=== PATIENT | female | born 1950 | race Caucasian/White ===

== ENCOUNTER 2021-10-28 15:39 | Outpatient (REF) | payer OTHER, SELFPAY ==
[2021-10-28 17:43] LABS: Alanine Aminotransferase 25 U/L (0-31); Albumin Level 4.2 g/dL (3.5-5.0); Alkaline Phosphatase 97 U/L (39-117); Aspartate Amino Transferase 19 U/L (5-31); Bilirubin Direct 0.2 mg/dL (0.0-0.5); Bilirubin Total 0.5 mg/dL (0.0-1.0); Total Protein 7.4 g/dL (6.5-8.0)
[2021-10-28 17:55] LABS: Valproate 79.8 mcg/mL (50.0-100.0)
== END 2021-10-28 15:40 | disposition home or self-care (01) ==
LOC: HO.LAB 15:39
PROVIDERS: PCP Internal Medicine; Visit Provider Psychiatry & Neurology Neurology
DX: G25.0 Essential tremor (principal); Z79.899 Other long term (current) drug therapy
CPT/HCPCS: 36415; 80076; 80164